=== PATIENT | female | born 1980 | race Hispanic/Latino ===

== ENCOUNTER 2021-07-14 15:51 | Outpatient (CLI) | payer OTHER | END 2021-07-14 15:52 | disposition home or self-care (01) | LOC: BICULT 15:51 | PROVIDERS: ATTEND Nurse Practitioner Women's Health | DX: N63.32 Unspecified lump in axillary tail of the left breast (principal); N63.21 Unspecified lump in the left breast, upper outer quadrant ==

== ENCOUNTER 2021-07-15 14:39 | Outpatient (CLI) | payer OTHER | END 2021-07-15 14:40 | disposition home or self-care (01) | LOC: BICMAMMO 14:39 | PROVIDERS: ATTEND Nurse Practitioner Women's Health | DX: N63.20 Unspecified lump in the left breast, unspecified quadrant (principal) ==

== ENCOUNTER → 2021-08-02 | Day surgery (SDC) | payer OTHER | LOC: BICULT 12:47 | PROVIDERS: ATTEND Family Medicine | PROC: 0H9U3ZX Drainage of Left Breast, Percutaneous Approach, Diagnostic (ICD-10-PCS; principal; 2021-08-02) | DX: C50.412 Malignant neoplasm of upper-outer quadrant of left female breast (principal) | CPT/HCPCS: 19083; 88305 ==